=== PATIENT | female | born 1960 | race Caucasian/White ===

== ENCOUNTER 2017-10-16 12:16 | Emergency (ER) | payer OTHER ==
[2017-10-16 12:22] VITALS: BP 118/67; PULSE 97; TEMP 98.6; BMI 23.3
--- NOTE | 2017-10-16 12:44 | PDOC ---
History of Present Illness - General Chief Complaint: Sore Throat Stated Complaint: THROAT PAIN Time Seen by Provider: 10/16/17 12:44 - History of Present Illness Initial Comments: 57 year old female with PMH of asthma presenting with sore throat, fever, and Coryza for the past 12 hours. She states that she felt well yesterday but slept next to her daughter who was recent diagnosed with Strep throat and she woke up this morning with a very sore throat and a light dry cough. She did get her flu vaccine this year. She did have one episode of warmth as well. Denies chest pain , SOB, palpitations, decreased appetite or other sick symptoms. 10/16/17 13:07 Past History - Past Medical History Allergies/Adverse Reactions: Allergies Allergy/AdvReac Type Severity Reaction Status Date / Time No Known Allergies Allergy Verified 10/16/17 12:22 Home Medications: Ambulatory Orders Salmeterol/Fluticasone [Advair 250Mcg/50Mcg -] 1 inh IH PRN PRN #0 inh 09/29/12 Albuterol Sulfate Inhaler - [Ventolin HFA Inhaler -] 1 - 2 inh PO Q4H PRN Folic Acid/Mv,Fe,Min [Centrum Chewable Tablet] 1 each PO DAILY 04/04/15 Gabapentin [Neurontin] 600 mg PO HS 09/11/16 Oxycodone HCl 15 mg PO BID PRN 09/11/16 Duloxetine HCl [Cymbalta] 0 mg PO DAILY 10/16/17 Omeprazole Magnesium [Prilosec] 0 mg PO DAILY 10/16/17 Anemia: No Asthma: Yes (SEASONAL) Cancer: No Cardiac Disorders: No CVA: No COPD: No CHF: No Dementia: No Diabetes: No GI Disorders: Yes (GASTRITIS) Disorders: No HTN: No Hypercholesterolemia: No Liver Disease: No Seizures: No Thyroid Disease: No - Surgical History Abdominal Surgery: No Appendectomy: No Cardiac Surgery: No Cholecystectomy: No Lung Surgery: No Neurologic Surgery: Yes (s/p back sx 01/13/2014 four screws) Orthopedic Surgery: Yes (EPIDURAL INJECTION) - Suicide/Smoking/Psychosocial Hx Smoking Status: Yes Smoking History: Current every day smoker Have you smoked in the past 12 months: Yes Number of Cigarettes Smoked Daily: 4 Information on smoking cessation initiated: Yes 'Breaking Loose' booklet given: 10/16/17 Hx Alcohol Use: No Drug/Substance Use Hx: No Substance Use Type: None Hx Substance Use Treatment: No Review of Systems - Review of Systems Constitutional: Yes: Fever. No: Diaphoresis, Night Sweats HEENTM: Yes: Nose Congestion, Throat Pain. No: Blurred Vision, Nose Pain Respiratory: Yes: Cough. No: Orthopnea, Shortness of Breath, Wheezing, Productive cough, Hemoptysis Cardiac (ROS): No: Chest Pain, Edema, Lightheadedness, Palpitations, Syncope ABD/GI: No: Diarrhea, Nausea, Poor Appetite, Vomiting : No: Dysuria, Hematuria Musculoskeletal: Yes: Back Pain Integumentary: No: Bruising, Erythema Neurological: No: Headache, Numbness Psychiatric: No: Anxiety, Depression *Physical Exam - Vital Signs Last Vital Signs Temp Pulse Resp BP Pulse Ox 98.6 F 97 H 20 118/67 97 10/16/17 12:17 10/16/17 12:17 10/16/17 12:17 10/16/17 12:17 10/16/17 12:17 - Physical Exam General Appearance: Yes: Nourished, Appropriately Dressed. No: Apparent Distress HEENT: positive: EOMI, JOMAR, Pharyngeal Erythema, Tonsillar Erythema, Nasal Congestion. negative: Normal ENT Inspection, Pharynx Normal, Tonsillar Exudate Neck: positive: Trachea midline, Normal Thyroid, Supple. negative: Tender, Rigid Respiratory/Chest: positive: Lungs Clear, Normal Breath Sounds. negative: Chest Tender, Respiratory Distress, Accessory Muscle Use Cardiovascular: positive: Regular Rhythm, Regular Rate. negative: Murmur Gastrointestinal/Abdominal: positive: Normal Bowel Sounds, Flat, Soft. negative : Tender Musculoskeletal: positive: Normal Inspection Extremity: positive: Normal Capillary Refill, Normal Inspection, Normal Range of Motion Integumentary: positive: Normal Color, Dry, Warm Neurologic: positive: Fully Oriented, Alert, Normal Mood/Affect, Normal Response , Motor Strength 5/5 Medical Decision Making - Medical Decision Making Patient presenting with sore throat concerning for step throat vs. flu vs. other URI. flu and rapid strep negative patient feeling better after 10 IV decadron and magic mouthwash. 10/16/17 15:02 *DC/Admit/Observation/Transfer Diagnosis at time of Disposition: Sore throat, URI (upper respiratory infection) - Discharge Dispostion Disposition: HOME Condition at time of disposition: Improved Admit: No - Referrals Referrals: Huong Jones MD [Primary Care Provider] - - Patient Instructions Printed Discharge Instructions: DI for Viral Upper Respiratory Infection -- Adult Additional Instructions: We believe that your sore throat is due to a viral infection. Your flu swab and strep swab were negative. Please use Tylenol and Motrin for your throat pain and throat lozenges. Please return if you have any worsening throat swelling or issues breathing despite the medicine. - Post Discharge Activity
[2017-10-16] MEDS ORDERED: ACETAMINOPHEN 500 MG TABLET (FP) PO ONE (13:06)
[2017-10-16] MEDS ORDERED: MAG HYDROX/ALH/SMC/DPHA/LIDO 240 ML MOUTHWASH MM SCH (13:15)
[2017-10-16] MEDS ORDERED: ACETAMINOPHEN 325 MG TABLET (FP) ONE (13:32)
--- NOTE | 2017-10-16 14:00 | PDOC ---
Attending Attestation - HPI HPI: 10/16/17 14:08 Pt is a 57 yo F with a PMHx of Asthma who presents to the ED with sore throat for the past 12 hours. Patient reports clear rhinorrhea, sore throat, nasal congestion and subjective fevers. Patient admits to sleeping on the bed with her niece who was recently treated for strep throat. Patient woke up with these symptoms and presents to the ED for further evaluation. - Physicial Exam PE: 10/16/17 14:08 Vitals: Triage Vital signs reviewed General Appearance: no acute distress, well nourished well developed, Head: Atraumatic, normocephalic Throat: +Throat erythema. Neck: Supple;No Nuchal rigidity Chest Wall: Nontender Cardiac: Regular rate and rhythm, no murmurs, no rubs, no gallops, Lungs: Clear to auscultation bilateral, good air movement bilaterally, Abdomen: Soft, nondistended, normal bowel sounds, nontender to palpation Extremities: Full range of motion to all extremities, no cyanosis, clubbing, or edema Skin: Warm and dry, no rashes or lesions, no petechiae - Medical Decision Making 10/16/17 14:08 Documentation prepared by Uzma Estrada, acting as manager medical writing for Gallo Olea MD, /DO. <Uzma Estrada - Last Filed: 10/16/17 14:18> - Resident Resident Name: Erick Fischer - ED Attending Attestation I have performed the following: I have examined & evaluated the patient, The case was reviewed & discussed with the resident, I agree w/resident's findings & plan, Exceptions are as noted - Medical Decision Making 10/16/17 15:04 Well-appearing no apparent distress running nose cough congestion sore throat rapid strep negative flu negative history and examination consistent with viral pharyngitis. Decadron given for pain control Vital signs stable patient will follow-up with her doctor this week she'll return to the ED for any severe worsening symptoms or for any concerns. Findings, need for follow-up and strict return instructions discussed with patient. <Gallo Olea - Last Filed: 10/16/17 15:04>
[2017-10-16] MEDS ORDERED: KETOROLAC TROMETHAMINE 30 MG/1 ML VIAL IM ONE (14:55)
[2017-10-16] MEDS ORDERED: DEXAMETHASONE SOD PHOSPHATE 10 MG/1 ML VIAL IM ONE (14:57)
[2017-10-16] MEDS ORDERED: DEXAMETHASONE SOD PHOSPHATE 10 MG/1 ML VIAL ONE (14:59)
== END 2017-10-16 15:14 | disposition home or self-care (01) ==
LOC: JER 12:16 → JERFT 12:16 → JER 15:14
PROC: 3E023GC Introduction of Other Therapeutic Substance into Muscle, Percutaneous Approach (ICD-10-PCS; principal; 2017-10-16)
DX: J06.9 Acute upper respiratory infection, unspecified (principal); B97.89 Other viral agents as the cause of diseases classified elsewhere
CPT/HCPCS: 87070; 87430; 87804; 96372; 99282-25

== ENCOUNTER 2017-11-07 01:59 | Emergency (ER) | payer OTHER ==
[2017-11-07] MEDS ORDERED: ALBUTEROL SO4 2.5/IPRATROPIUM 0.5 INH SOL 3 ML VIAL.NEB. NEB ONE ×2 (02:03→03:10)
[2017-11-07 02:20] VITALS: BP 116/73; PULSE 103; TEMP 99.6; BMI 24.5
--- NOTE | 2017-11-07 03:00 | PDOC ---
History of Present Illness - General History Source: Patient Exam Limitations: No Limitations - History of Present Illness Initial Comments: 11/07/17 03:20 The patient is a 57 year old female with a significant PMH of seasonal asthma and smoker who presents to the emergency department with severe back pain since yesterday. The patient states she was doing laundry when she started experiencing nasal congestion, cough and wheezing. The patient reports the back pain is exacerbated by coughing. The patient denies chest pain, headache and dizziness. Denies fever, chills, nausea, vomit, diarrhea and constipation. Denies dysuria, frequency, urgency and hematuria. Allergies: NKA Past surgical history: s/p back surgery on 01/13/2014 -four screws; Epidural injection Social history: Current smoker. No reported alcohol or drug use. <Lauren Deluca - Last Filed: 11/07/17 03:24> <Rupali Phillips - Last Filed: 11/07/17 19:56> - General Chief Complaint: Cold Symptoms Stated Complaint: DIFFICULTY BREATHING,FEVER Time Seen by Provider: 11/07/17 02:04 Past History <Lauren Deluca - Last Filed: 11/07/17 03:24> - Past Medical History Anemia: No Asthma: Yes (SEASONAL) Cancer: No Cardiac Disorders: No CVA: No COPD: No CHF: No Dementia: No Diabetes: No GI Disorders: Yes (GASTRITIS) Disorders: No HTN: No Hypercholesterolemia: No Liver Disease: No Seizures: No Thyroid Disease: No - Surgical History Abdominal Surgery: No Appendectomy: No Cardiac Surgery: No Cholecystectomy: No Lung Surgery: No Neurologic Surgery: Yes (s/p back sx 01/13/2014 four screws) Orthopedic Surgery: Yes (EPIDURAL INJECTION) - Suicide/Smoking/Psychosocial Hx Smoking Status: Yes Smoking History: Never smoked Have you smoked in the past 12 months: No Number of Cigarettes Smoked Daily: 4 Information on smoking cessation initiated: No 'Breaking Loose' booklet given: 10/16/17 Hx Alcohol Use: No Drug/Substance Use Hx: No Substance Use Type: None Hx Substance Use Treatment: No <Rupali Phillips - Last Filed: 11/07/17 19:56> - Past Medical History Allergies/Adverse Reactions: Allergies Allergy/AdvReac Type Severity Reaction Status Date / Time No Known Allergies Allergy Verified 11/07/17 02:18 Home Medications: Ambulatory Orders Salmeterol/Fluticasone [Advair 250Mcg/50Mcg -] 1 inh IH PRN PRN #0 inh 09/29/12 Albuterol Sulfate Inhaler - [Ventolin HFA Inhaler -] 1 - 2 inh PO Q4H PRN Folic Acid/Multivit,Iron,Chief Technician [Centrum Chewable Tablet] 1 each PO DAILY Gabapentin [Neurontin] 600 mg PO HS 09/11/16 Oxycodone HCl 15 mg PO BID PRN 09/11/16 Duloxetine HCl [Cymbalta] 0 mg PO DAILY 10/16/17 Omeprazole Magnesium [Prilosec] 0 mg PO DAILY 10/16/17 Benzonatate [Tessalon Pearls -] 100 mg PO TID #30 capsule 11/07/17 Methocarbamol [Robaxin -] 500 mg PO TID #30 tablet 11/07/17 Methocarbamol [Robaxin -] 500 mg PO TID #30 tablet 11/07/17 Review of Systems - Review of Systems Able to Perform ROS?: Yes Comments:: 11/07/17 03:22 GENERAL/CONSTITUTIONAL: No fever or chills. No weakness. HEAD, EYES, EARS, NOSE AND THROAT: (+) Nasal congestion. No change in vision. No ear pain or discharge. No sore throat. CARDIOVASCULAR: No chest pain or shortness of breath. RESPIRATORY: (+) Cough (+) Wheezing. No hemoptysis. GASTROINTESTINAL: No nausea, vomiting, diarrhea or constipation. GENITOURINARY: No dysuria, frequency, or change in urination. MUSCULOSKELETAL: (+) Back pain. No joint or muscle swelling or pain. No neck pain. SKIN: No rash NEUROLOGIC: No headache, vertigo, loss of consciousness, or change in strength/ sensation. ENDOCRINE: No increased thirst. No abnormal weight change. HEMATOLOGIC/LYMPHATIC: No anemia, easy bleeding, or history of blood clots. ALLERGIC/IMMUNOLOGIC: No hives or skin allergy. <Lauren Deluca - Last Filed: 11/07/17 03:24> *Physical Exam - Vital Signs Last Vital Signs Temp Pulse Resp BP Pulse Ox 99.6 F 103 H 20 116/73 97 11/07/17 02:18 11/07/17 02:18 11/07/17 02:18 11/07/17 02:18 11/07/17 02:18 - Physical Exam Comments: 11/07/17 03:24 GENERAL: Awake, alert, and fully oriented, in no acute distress HEAD: No signs of trauma EYES: PERRLA, EOMI, sclera anicteric, conjunctiva clear ENT: Auricles normal inspection, hearing grossly normal, nares patent, oropharynx clear without exudates. Moist mucosa NECK: Normal ROM, supple, no lymphadenopathy, JVD, or masses LUNGS: Breath sounds equal, clear to auscultation bilaterally. No wheezes, and no crackles HEART: Regular rate and rhythm, normal S1 and S2, no murmurs, rubs or gallops ABDOMEN: Soft, nontender, normoactive bowel sounds. No guarding, no rebound. No masses EXTREMITIES: Normal range of motion, no edema. No clubbing or cyanosis. No cords , erythema, or tenderness NEUROLOGICAL: Cranial nerves II through XII grossly intact. Normal speech, normal gait SKIN: Warm, Dry, normal turgor, no rashes or lesions noted. <Lauren Deluca - Last Filed: 11/07/17 03:24> - Vital Signs Last Vital Signs Temp Pulse Resp BP Pulse Ox 99.6 F 103 H 20 116/73 97 11/07/17 02:18 11/07/17 02:18 11/07/17 02:18 11/07/17 02:18 11/07/17 02:18 <Rupali Phillips - Last Filed: 11/07/17 19:56> Medical Decision Making - Medical Decision Making 11/07/17 19:53 Pt come with musculoskeletal back pain and she is requesting meds. SHe states that she has been coughing. No fever no chills. SHe is a smoker. She will be given tessalon perles for cough and robaxin for the pain. Pt tells me that she takes narcotics for the pain, but I explained that I will not refill her narcotics. Follow with PMD. No need for xrays or further exams at this time. <Rupali Phillips - Last Filed: 11/07/17 19:56> *DC/Admit/Observation/Transfer - Attestations Scribe Attestion: 11/07/17 03:24 Documentation prepared by Lauren Deluca, acting as medical office asst for Rupali Phillips MD. <Lauren Deluca - Last Filed: 11/07/17 03:24> - Discharge Dispostion Admit: No <Rupali Phillips - Last Filed: 11/07/17 19:56> Diagnosis at time of Disposition: Asthma exacerbation, Back pain - Discharge Dispostion Disposition: HOME Condition at time of disposition: Stable - Prescriptions Prescriptions: Benzonatate [Tessalon Pearls -] 100 mg PO TID #30 capsule Methocarbamol [Robaxin -] 500 mg PO TID #30 tablet Methocarbamol [Robaxin -] 500 mg PO TID #30 tablet - Patient Instructions Printed Discharge Instructions: DI for Back Strain or Sprain
[2017-11-07] MEDS ORDERED: guaiFENesin 200 MG/10 ML 10 ML UNIT-DOSE CUPS PO ONE (03:06)
[2017-11-07] MEDS ORDERED: METHOCARBAMOL 500 MG TABLET PO ONE (03:06)
[2017-11-07] MEDS ORDERED: METHOCARBAMOL 500 MG TABLET ONE (03:10)
[2017-11-07] MEDS ORDERED: guaiFENesin/D-METHORPHAN HB 10 ML UNIT-DOSE CUPS ONE (03:11)
== END 2017-11-07 03:20 | disposition home or self-care (01) ==
LOC: JER 01:59
PROC: 3E0F7GC Introduction of Other Therapeutic Substance into Respiratory Tract, Via Natural or Artificial Opening (ICD-10-PCS; principal; 2017-11-07)
DX: J45.901 Unspecified asthma with (acute) exacerbation (principal); M54.5 Low back pain
CPT/HCPCS: 99281-25

== ENCOUNTER 2021-01-01 10:43 | Emergency (ER) | payer OTHER ==
[2021-01-01 10:52] VITALS: BMI 24.9
[2021-01-01] MEDS ORDERED: SODIUM CHLORIDE 1,000 ML IV STA ×2 (12:46→15:09)
[2021-01-01] MEDS ORDERED: ACETAMINOPHEN 1000 MG/100 ML VIAL (NON FORMULARY) IVPB ONE (12:46)
[2021-01-01] MEDS ORDERED: ACETAMINOPHEN INJECTION 100 ML IVPB ONE (13:03)
[2021-01-01 13:08] LABS: BASO % 0.8 % (0-2.0); EOS % 1.2 % (0-4.5); HEMATOCRIT 41.9 % (32.4-45.2); HEMOGLOBIN 14.1 GM/dL (10.7-15.3); LYMPH % 13.7 % (8-40); MCH 28.9 pg (25.7-33.7); MCHC 33.6 g/dl (32.0-36.0); MEAN CELL VOLUME 85.8 fl (80-96); MONO % 5.8 % (3.8-10.2); NEUT % 78.5 % (42.8-82.8); PLATELET COUNT 355 K/MM3 (134-434); RBC 4.89 M/mm3 (3.60-5.2); RDW 14.4 % (11.6-15.6); WHITE BLOOD COUNT 20.5 K/mm3 (4.0-10.0)
[2021-01-01 13:15] LABS: INR 0.97 (0.83-1.09); PROTHROMBIN TIME (PATIENT) 11.8 SEC (9.7-13.0)
[2021-01-01 13:26] LABS: POTASSIUM 4.2 mmol/L (3.5-5.1)
[2021-01-01 13:28] LABS: CALCIUM 9.2 mg/dL (8.5-10.1)
[2021-01-01 13:29] LABS: BLOOD UREA NITROGEN 14.5 mg/dL (7-18)
[2021-01-01 13:32] LABS: CREATININE 0.8 mg/dL (0.55-1.3)
[2021-01-01 13:33] LABS: BILIRUBIN,TOTAL 0.3 mg/dL (0.2-1); TOT PROT 7.4 g/dl (6.4-8.2)
[2021-01-01 14:25] LABS: URINE APPEARANCE TURBID; URINE BILIRUBIN 1+ (NEGATIVE); URINE COLOR RED; URINE GLUCOSE (UA) NEGATIVE (NEGATIVE); URINE KETONE NEGATIVE (NEGATIVE); URINE LEUK ESTERASE 3+ (NEGATIVE); URINE NITRITE POSITIVE (NEGATIVE); URINE PROTEIN 2+ (NEGATIVE)
[2021-01-01 14:32] VITALS: PULSE 60
[2021-01-01 14:33] LABS: ANISOCYTOSIS 0; MACROCYTOSIS 0; PLATELET ESTIMATE NORMAL
[2021-01-01] MEDS ORDERED: KETOROLAC TROMETHAMINE 60 MG/2 ML VIAL IM ONE (15:09)
[2021-01-01] MEDS ORDERED: CEFTRIAXONE 1,000 MG in DEXTROSE 5%-WATER - 50 ML IVPB ONE (15:09)
[2021-01-01] MEDS ORDERED: KETOROLAC TROMETHAMINE 60 MG/2 ML VIAL ONE (15:14)
[2021-01-01] MEDS ORDERED: LIDOCAINE 5% TOPICAL PATCH TP ONE (16:12)
[2021-01-01] MEDS ORDERED: LIDOCAINE 5% TOPICAL PATCH ONE (16:15)
[2021-01-01] MEDS ORDERED: CEFTRIAXONE 1 GM in DEXTROSE 5%-WATER - 100 ML IVPB ONE (17:02)
[2021-01-01] MEDS ORDERED: CEFTRIAXONE 1 GM/50 ML BAG ONE (17:34)
[2021-01-01 18:52] VITALS: BP 140/57; TEMP 98.2
[2021-01-01] MEDS ORDERED: LIDOCAINE PATCH REMOVAL MC SCH (22:00)
== END 2021-01-01 18:53 | disposition home or self-care (01) ==
LOC: JER 10:43
PROC: 3E033GC Introduction of Other Therapeutic Substance into Peripheral Vein, Percutaneous Approach (ICD-10-PCS; principal; 2021-01-01)
PROC: 3E023GC Introduction of Other Therapeutic Substance into Muscle, Percutaneous Approach (ICD-10-PCS; principal; 2021-01-01)
DX: N12 Tubulo-interstitial nephritis, not specified as acute or chronic (principal)
CPT/HCPCS: 36415; 74176-TC; 80053; 81003; 85025; 85610; 87086; 87186; 99285-25; J0131

== ENCOUNTER 2023-05-23 01:04 | Emergency (ER) | payer OTHER ==
[2023-05-23 01:38] VITALS: BP 121/82; PULSE 90; RESP 18; TEMP 98; BMI 23.3
[2023-05-23 02:43] LABS: POTASSIUM 4.1 mmol/L (3.5-5.1)
[2023-05-23 02:46] LABS: ALBUMIN 3.7 g/dl (3.4-5.0); BLOOD UREA NITROGEN 17.7 mg/dL (7-18)
[2023-05-23 02:49] LABS: CREATININE 0.9 mg/dL (0.55-1.3)
[2023-05-23 02:50] LABS: BILIRUBIN,TOTAL 0.2 mg/dL (0.2-1); TOT PROT 6.9 g/dl (6.4-8.2)
[2023-05-23 02:56] LABS: CALCIUM 9.1 mg/dL (8.5-10.1)
== END 2023-05-23 03:43 | disposition home or self-care (01) ==
LOC: JER 01:04
DX: T40.2X1A Poisoning by other opioids, accidental (unintentional), initial encounter (principal)
CPT/HCPCS: 36415; 80053; 93005; 93010; 99284-25

== ENCOUNTER 2023-12-30 06:59 | Day surgery (SDC) | payer OTHER ==
[2023-12-27 13:03] VITALS: BMI 23.3
[2023-12-30] MEDS ORDERED: KETOROLAC TROMETHAMINE 30 MG/1 ML VIAL ONE (08:19)
[2023-12-30] MEDS ORDERED: ONDANSETRON 4 MG/2 ML VIAL ONE (08:19)
[2023-12-30] MEDS ORDERED: DEXAMETHASONE SOD PHOSPHATE 4 MG/1 ML VIAL ONE (08:19)
[2023-12-30] MEDS ORDERED: LIDOCAINE HCL/PF 2% SDV 5ML VIAL ONE (08:19)
[2023-12-30] MEDS ORDERED: MIDAZOLAM HCL 2 MG/2 ML SINGLE DOSE VIAL ONE (08:20)
[2023-12-30] MEDS ORDERED: PROPOFOL 20 ML ONE (08:20)
[2023-12-30] MEDS ORDERED: ceFAZolin SODIUM 1 GM VIAL ONE ×2 (08:20)
[2023-12-30] MEDS ORDERED: BUPIVACAINE HCL/PF 2.5 MG/ML - 30 ML VIAL IJ ONE (08:50)
[2023-12-30] MEDS ORDERED: oxyCODONE HCL 5 MG TABLET PO PRN (09:04)
[2023-12-30] MEDS ORDERED: ONDANSETRON 4 MG/2 ML VIAL IVPUSH PRN (09:04)
[2023-12-30] MEDS: BUPIVACAINE HCL/PF 0.25% (2.5MG/ML) 10 ML VIAL IJ ONE (09:43)
[2023-12-30] MEDS ORDERED: FENTANYL CITRATE/PF 50 MCG/ML VIAL ONE ×2 (09:57→10:03)
[2023-12-30 11:33] VITALS: RESP 20; TEMP 97.4
[2023-12-30] MEDS ORDERED: oxyCODONE HCL 5 MG TABLET ONE (11:44)
[2023-12-30] MEDS: oxyCODONE HCL 5 MG TABLET PO PRN (11:45)
[2023-12-30 12:26] VITALS: BP 116/57; PULSE 81
== END 2023-12-30 12:00 | disposition home or self-care (01) ==
LOC: FASU 06:59
PROVIDERS: ATTEND Orthopaedic Surgery
PROC: 0SBC4ZZ Excision of Right Knee Joint, Percutaneous Endoscopic Approach (ICD-10-PCS; 2023-12-30)
PROC: 0SBC4ZZ Excision of Right Knee Joint, Percutaneous Endoscopic Approach (ICD-10-PCS; principal; 2023-12-30 09:26)
DX: S83.281A Other tear of lateral meniscus, current injury, right knee, initial encounter (principal); S83.241A Other tear of medial meniscus, current injury, right knee, initial encounter; S83.8X1A Sprain of other specified parts of right knee, initial encounter; M65.861 Other synovitis and tenosynovitis, right lower leg; X58.XXXA Exposure to other specified factors, initial encounter; Y93.9 Activity, unspecified; Y92.9 Unspecified place or not applicable
CPT/HCPCS: 94760